=== PATIENT | female | born 1985 | race Two or more races ===

== ENCOUNTER 2022-10-29 09:26 | Outpatient (CLI) | payer OTHER | END 2022-10-29 09:35 | disposition home or self-care (01) | LOC: RX STUDY 09:26 | PROVIDERS: ATTEND Obstetrics & Gynecology Reproductive Endocrinology | DX: D25.9 Leiomyoma of uterus, unspecified (principal); N94.6 Dysmenorrhea, unspecified; E28.8 Other ovarian dysfunction ==